=== PATIENT | female | born 1985 | race Caucasian/White ===

== ENCOUNTER 2016-10-16 22:53 | Emergency (ER) | payer SELFPAY ==
[~2016-10-16] VITALS: Ht 172.7 cm; Wt 70.0 kg
[2016-10-16 22:58] VITALS: BP 131/93; PULSE 92; RESP 18; TEMP 98.9; O2SAT 100
--- NOTE | 2016-10-16 23:06 | PD ---
HPI Chief Complaint: Injury Time Seen by Provider: 22:59 Travel History International Travel<30 days: No Contact w/Intl Traveler<30days: No Traveled to known affect area: No History of Present Illness HPI The patient is a 31-year-old female who presents emergency department via EMS for left ankle pain. The patient is [place]-speaking, she has a male friend at bedside who translates per her request. The patient was coming down a wet ramp earlier today when she twisted her ankle. The patient complains of pain over the medial lateral aspect of the ankle, has difficulty bearing weight secondary to pain. The patient declined pain medication by EMS prior to arrival. The patient denies any head trauma, neck trauma, chest, shortness breath, nausea, vomiting, or abdominal pain. Symptoms are moderate, exacerbated after she twisted her ankle on a wet surface, and slightly alleviated at rest. She is currently on her menstrual cycle, denies . The patient denies any chronic medical problem is, daily medications, allergies to known medications, and previous surgeries. [facility] Past Medical History Medical History: Denies Significant Hx ?: Not LMP: 10/14/16 Past Surgical History Surgical History: No Previous Surgery Social History Tobacco Use: No Allergies-Medications (Allergen,Severity, Reaction): Coded Allergies: No Known Allergies (Unverified , 10/16/16) Reported Meds & Prescriptions Reported Meds & Active Scripts Active No Active Prescriptions or Reported Medications Review of Systems Except as stated in HPI: all other systems reviewed are Neg Musculoskeletal: Positive: Limited ROM, Edema, Pain Physical Exam Narrative GENERAL: Awake, alert, very pleasant 31-year-old female who appears her stated age and is in no acute respiratory distress. SKIN: Focused skin assessment warm/dry. HEAD: Atraumatic. Normocephalic. EYES: No injection or drainage. ENT: No nasal bleeding or discharge. Mucous membranes pink and moist. NECK: Trachea midline. No JVD. CARDIOVASCULAR: Regular rate and rhythm. No murmur appreciated. RESPIRATORY: No accessory muscle use. Clear to auscultation. Breath sounds equal bilaterally. GASTROINTESTINAL: Abdomen soft, non-tender, nondistended. MUSCULOSKELETAL: The left ankle is swollen and edematous, tender in the medial lateral malleus. Limited ability to invert, fever, plantarflex/dorsiflexion secondary to pain. She is able flex the right knee and right hip without difficulty. Positive left dorsalis pedal pulse. Moves her upper extremities without difficulty. NEUROLOGICAL: Awake and alert. No obvious cranial nerve deficits. Motor grossly within normal limits. Normal speech. Sensation is intact to the medial , lateral, dorsal aspect the left foot. PSYCHIATRIC: Appropriate mood and affect; insight and judgment normal. Data Data Last Documented VS Vital Signs Date Time Temp Pulse Resp B/P Pulse Ox O2 Delivery O2 Flow Rate FiO2 10/16/16 22:58 98.9 92 18 131/93 100 Orders Ankle, Limited (Ap&Lat) (10/16/16 ) Splinting (10/16/16 ) Morphine Inj (Morphine Inj) (10/17/16 00:00) Ondansetron Inj (Zofran Inj) (10/17/16 00:00) [facility] Medical Decision Making Medical Screen Exam Complete: Yes Emergency Medical Condition: Yes Medical Record Reviewed: Yes Interpretation(s) Last Impressions Ankle X-Ray 10/16/16 0000 Signed Impressions: Service Date/Time: Sunday, October 16, 2016 23:24 - CONCLUSION: Trimalleolar fracture of the ankle. Quentin Lockett MD Differential Diagnosis Differential diagnosis includes fracture, dislocation, dislocation with fracture , contusion, hematoma, sprain, strain. Narrative Course The patient declined pain medication. X-ray of the left ankle was obtained. X- ray the left ankle reveals a trimalleolar fracture, no significant displacement noted. I discussed the patient with the on-call orthopedic surgeon, Dr. Tian , and 11:50 PM who states the patient can be seen in the office tomorrow. The patient was placed in a short posterior White splint and fitted for crutches. The patient was administered morphine and Zofran prior to splinting of her fracture. She will be discharged home on pain medications. She is advised elevate, ice, and follow-up with orthopedics tomorrow as directed. Diagnosis Primary Impression: Left trimalleolar fracture Qualified Code: S82.852A - Left trimalleolar fracture, closed, initial encounter Referrals: Benjamin Tian Jr., MD 1 day Patient Instructions: General Instructions Additional Instructions: Splint and crutches as directed. Follow-up with orthopedic surgeon tomorrow. Elevate, ice, no weightbearing on the left foot. Med/Other Pt SpecificInfo: Prescription(s) given Scripts Hydrocodone-Acetaminophen (Downs)5-325 mg Tab1 Tab PO Q6H PRN (PAIN) #20 TAB Ref 0 Prov:Esa Ratliff MD 10/16/16 Ibuprofen 600 Mg Pro172 Mg PO Q6H PRN (Pain/Inflammation) #20 TAB Ref 0 Prov:Esa Ratliff MD 10/16/16 Disposition: 01 DISCHARGE HOME Condition: Stable Esa Ratliff MD Oct 16, 2016 23:06
--- NOTE | 2016-10-16 23:41 | RADRPT ---
EXAM DATE/TIME: 10/16/2016 23:24 [facility] COMPARISON: No previous studies available for comparison. INDICATIONS : Left ankle pain post fall. MEDICAL HISTORY : None. SURGICAL HISTORY : None. ENCOUNTER: Initial ACUITY: 1 day PAIN SCORE: 9/10 LOCATION: Left ankle. FINDINGS: There is a displaced horizontal fracture through the medial malleolus. There is a slightly oblique f racture through the distal diametaphysis of the fibula with one half shaft width medial displacement of the distal fracture fragment. An oblique fracture of the posterior lip of the distal tibia extend s intra-articular and there is mild displacement. Prominent soft tissue swelling about the ankle. T he ankle mortise with minimally widened laterally. No radiopaque foreign bodies seen. CONCLUSION: Trimalleolar fracture of the ankle. Quentin Lockett MD on October 16, 2016 at 23:38 Board Certified Radiologist. This report was verified electronically.
[2016-10-16] MEDS ORDERED: NORC5TAB PO (23:54)
[2016-10-16] MEDS ORDERED: IBUP-232 PO (23:54)
[2016-10-17] MEDS ORDERED: MORPHINE SULFATE 4 MG/ML INJ IV PUSH ONE
[2016-10-17] MEDS ORDERED: ONDANSETRON HCL 4 MG/2 ML VIAL IV PUSH ONE
[2016-10-17 01:07] VITALS: BP 126/64; PULSE 78; RESP 17; O2SAT 96
== END 2016-10-17 01:09 | disposition home or self-care (01) ==
LOC: NEPC 22:53
DX: S82.852A Displaced trimalleolar fracture of left lower leg, initial encounter for closed fracture (principal); X50.1XXA Overexertion from prolonged static or awkward postures, initial encounter
CPT/HCPCS: 29515; 73600; 96374; 96375; 99284; E0113; J2270; J2405

== ENCOUNTER 2016-10-20 10:01 | Day surgery (SDC) | payer SELFPAY ==
[~2016-10-20] VITALS: Ht 170.2 cm; Wt 70.5 kg
[~2016-10-20 10:01] MED LIST: IBUP-232 PO; NORC5TAB PO
[2016-10-20 10:59] VITALS: BP 119/80; PULSE 93; RESP 16; TEMP 97.8; O2SAT 100
[2016-10-20] MEDS ORDERED: POVIDONE IODINE 5% (ANTISEPSIS KIT) 4 APPLICATIONS EACH NARE PRN (11:00)
[2016-10-20] MEDS ORDERED: CHLORHEXIDINE GLUCONATE 4% SOLN 120 ML BTL TOPICAL SCH (11:00)
[2016-10-20] MEDS ORDERED: INSULIN HUMAN REGULAR 1,000 UNITS/10 ML VIAL SQ PRN (11:00)
[2016-10-20] MEDS ORDERED: SODIUM CHLORID 0.9% 500 ML IV PRN (11:00)
[2016-10-20] MEDS ORDERED: VANCOMYCIN 1000 MG/NS 250 ML (for <70 kg) IV SCH ×2 (11:00)
[2016-10-20] MEDS ORDERED: LACTATED RINGER'S 1000 ML IV PRN (11:00)
[2016-10-20] MEDS ORDERED: CHLORHEXIDINE GLUCONATE 2 % 1 PACK (2 CLOTHS) TOPICAL PRN (11:00)
[2016-10-20] MEDS ORDERED: ceFAZolin 2 GM PREMIX 50 ML IV SCH (11:00)
[2016-10-20] MEDS ORDERED: METOPROLOL TARTRATE 25 MG TAB PO PRN (11:00)
[2016-10-20] MEDS ORDERED: ONDANSETRON HCL 4 MG/2 ML VIAL IV PUSH ONE (12:00)
[2016-10-20] MEDS ORDERED: PHENYLEPH/NS 1000 MCG/10 ML SYR IV ONE (12:00)
[2016-10-20] MEDS ORDERED: PROPOFOL 200 MG/20 ML AMP IV ONE (12:00)
[2016-10-20] MEDS ORDERED: LACTATED RINGER'S 1000 ML INJ 2,000 ML IV ONE (12:00)
[2016-10-20] MEDS ORDERED: GENTAMICIN SULFATE 80 MG/2 ML VIAL ONE (13:11)
[2016-10-20] MEDS ORDERED: MIDAZOLAM HCL 2 MG/2 ML VIAL ONE ×2 (14:02→16:04)
[2016-10-20] MEDS ORDERED: fentaNYL CITRATE 250 MCG/5 ML AMP ONE (15:56)
[2016-10-20] MEDS ORDERED: FAMOTIDINE 20 MG/2 ML VIAL ONE (16:04)
[2016-10-20] MEDS ORDERED: DEXAMETHASONE SOD PHOS 4 MG/ML VIAL ONE (16:04)
[2016-10-20] MEDS ORDERED: ACETAMINOPHEN 1000 MG/100 ML VIAL IV ONE (16:54)
[2016-10-20] MEDS ORDERED: HYDROmorphone HCL PF 2 MG/ML VIAL ONE (16:54)
[2016-10-20] MEDS ORDERED: PERC5TAB12 PO (17:36)
--- NOTE | 2016-10-20 17:36 | PD.OP ---
cc: Benjamin Tian Jr., MD Operative Report Date of Surgery: Oct 20, 2016 Preoperative Diagnosis: Left trimalleolar ankle fracture Postoperative Diagnosis: Same Procedure: Open reduction internal fixation of trimalleolar ankle fracture without fixation to the posterior lip. Anesthesia: Gen. Surgeon: Benjamin Tian Hardware Trainer(s): JOANN Owens The surgical procedure was assisted by my Advanced Registered Nurse Practitioner. My ROPING TENDER presence was necessary throughout this case for the manipulation and positioning of the surgical extremity. My ROPING TENDER was assisting me throughout the duration of this procedure. The skill set of an Advance Registered Nurse Practitioner was medically necessary to complete this procedure. During the surgical case, the surgical nurse practitioner was working at the back table and the Advance Registered Nurse Practitioner was directly assisting me. Resident Surgeon: None Operation and Findings: Informed consent obtained, operative site was marked. Soft tissue swelling had significantly improved and appeared to be ready for surgery. He was brought to the operating room and placed on the operating room table. He was given intravenous sedation, general endotracheal anesthesia. He received IV antibiotics and was placed in the lateral decubitus position. Foot and leg were prepped with alcohol, followed by Hibiclens, draped in usual sterile fashion. A time out procedure was preformed. At this point the LEFT leg was elevated. The tourniquet was inflated. The procedure began with a five inch incision over the lateral aspect fibula. A full thickness flap was carefully elevated. The fracture was identified , periosteum was elevated atthe fracture site. Attention was now turned to expose the distal end of the fibula and as much proximal as necessary to allow reduction and plate position. Attention was turned to the syndesmosis and under direct visualization the syndesmotic area was cleaned of any debris and irrigated. Using pointed reduction clamps the fibula was reduced and reduction was maintained using lag screw fixation. Reduction was confirmed under fluoroscopy. The rest of the fibula was neutralized using a lateral fibular plate with locking screws distally. An anterior medial incision was made at the level of the medial malleolus. A full-thickness flap was carefully elevated. The medial malleolus piece was slightly move out delayed to allow direct visualization of the medial clear space which was thoroughly irrigated and cleared of any debris. The medial malleolus was reduced using pointed reduction clamp and reduction was provisionally maintained with a K wire before drilling the proximal cortex for Lag screw fixation. Lag screw was placed in the medial malleolus at anterior colliculus. Under live fluoroscopy, the syndesmosis was stressed in the mortise view with the cotton test and external rotation stress test. The syndesmosis was found to be stable. The posterior malleolus fragment was small, accounting for less than 20% of the articular surface, it was well reduced and the ankle joint was stable. Multiplanar fluoroscopy confirmed well-aligned fracture. Final fluoroscopy was used to confirm a well-aligned fracture with well-placed hardware. Incision was thoroughly irrigated. Tourniquet was released. Hemostasis was confirmed. Fascia layer was closed 0 Vicryl, the skin and subcutaneous tissue closed with 3 -0 nylon, in vertical mattress fashion. Sterile dressings were applied the patient was placed into a well molded padded splint. The patient was transferred to the Recovery Room in stable condition. IMPLANTS USED Synthes POSTP-OP PLAN OF ACTIVITY Antiocoagulation: SCD Weight bearing status:NWB Dressing: Do not remove Dispo: expected discharge from PACU. F/U office in 10-14 days Benjamin Tian Jr., MD Oct 20, 2016 17:36 Benjamin Tian Jr., MD Oct 20, 2016 17:36
[2016-10-20] MEDS ORDERED: oxyCODONE/ACETAMINOPHEN 5 MG/325 MG TAB PO PRN ×2 (17:45)
[2016-10-20] MEDS ORDERED: ONDANSETRON HCL 4 MG/2 ML VIAL IV PRN (17:45)
[2016-10-20] MEDS ORDERED: MORPHINE SULFATE 4 MG/ML INJ IV PUSH PRN (17:45)
[2016-10-20] MEDS ORDERED: SODIUM CHLORIDE 0.9% FLUSH 10 ML FLUSH IV FLUSH PRN (17:45)
--- NOTE | 2016-10-20 17:46 | RADRPT ---
EXAM DATE/TIME: 10/20/2016 16:40 [facility] COMPARISON: No previous studies available for comparison. INDICATIONS : ORIF Left ankle fracture repair. MEDICAL HISTORY : None. SURGICAL HISTORY : None. ENCOUNTER: Initial ACUITY: 1 day PAIN SCORE: Non-responsive. LOCATION: Left ankle FINDINGS: 4 digital images are submitted. These reveal lateral cortical sideplate and screw fixation of the dis loan fibula and screw fixation of medial malleolar fracture. Hardware is well-positioned and there is good reduction of fracture fragments. Anatomic alignment noted. CONCLUSION: Satisfactory operative appearance. Kentrell Dubose MD on October 20, 2016 at 17:43 Board Certified Radiologist. This report was verified electronically.
[2016-10-20] MEDS ORDERED: *MEPERIDINE 25 MG INJ VIAL PERIprocedural Use ONLY ONE (18:15)
[2016-10-20 18:16] VITALS: TEMP 97.6
[2016-10-20] MEDS ORDERED: *morphine SULFATE 8 MG/ML PERIprocedure ONLY ONE (18:21)
[2016-10-20] MEDS ORDERED: *ONDANSETRON 4 MG VIAL PERIprocedural Use ONLY ONE (19:26)
[2016-10-20] MEDS ORDERED: KETOROLAC TROMETHAMINE 30 MG/ML (IVP) VIAL IVP ONE (19:30)
[2016-10-20 19:45] VITALS: BP 120/76; PULSE 96; RESP 20; O2SAT 98
[2016-10-20] MEDS ORDERED: DO NOT ADM ANY ANTICOAGULANT DRUGS PRN (20:15)
[2016-10-20] MEDS ORDERED: SODIUM CHLORIDE 0.9% FLUSH 10 ML FLUSH IV FLUSH SCH (21:00)
== END 2016-10-20 19:45 | disposition home or self-care (01) ==
LOC: HSDC 10:01
PROVIDERS: ATTEND Orthopaedic Surgery
DX: S82.852A Displaced trimalleolar fracture of left lower leg, initial encounter for closed fracture (principal)
CPT/HCPCS: 01480; 27822; 73600; 76000; 86850; 86900; 86901; C1713; J0131; J1100; J1170; J1580; J2175; J2250; J2270; J2370; J2405; J3010; J3370; J7050; J7120

== ENCOUNTER → 2016-12-21 | Outpatient (CLI) | payer SELFPAY ==
[~2016-12-21] MED LIST changes: +PERC5TAB12 PO
== END ==
LOC: HORT 10:01
PROVIDERS: ATTEND Orthopaedic Surgery
DX: S82.852A Displaced trimalleolar fracture of left lower leg, initial encounter for closed fracture (principal); X58.XXXA Exposure to other specified factors, initial encounter
CPT/HCPCS: L2114